=== PATIENT | female | born 1995 | race Hispanic/Latino ===

== ENCOUNTER → 2018-12-24 | Day surgery (SDC) | payer OTHER ==
[~2018-12-24] MED LIST: ATROPINE SULFATE 1 MG/ML VIAL ONE; BUPIVACAINE 0.25% 30ML SDV INJ ONE; CYCLOBENZAPRINE10 MG PO; DEXAMETHASONE SOD PHOS INJ 4 MG/ML VIAL ONE; FENTANYL CITRATE/PF 100MCG/2 ML INJ ONE; KETOROLAC TROMETHAMINE 30 MG/ML VIAL ONE; LIDOCAINE HCL 2% LOCAL INJ 5 ML SDV VIAL INJ ONE; MICROGESTIN FE1 EAC1 PO; MIDAZOLAM HCL 2 MG/2 ML VIAL ONE; NAPROXEN250 MG PO; NEOSTIGMINE 5 MG/5ML SYR ONE; ONDANSETRON HCL INJ 2MG/ML 2ML 2 MG/ML VIAL ONE; PROPOFOL IV EMULSION 10 MG/ML 20 ML VIAL ONE; ROCURONIUM BROMIDE 10 MG/ML 5ML VIAL ONE; SEVOFLURANE INHAL SOLN 250 ML PEN BTL ONE
[2018-12-24 08:45] VITALS: BP 103/83
--- NOTE | 2018-12-24 15:45 | Operative Report ---
DATE OF PROCEDURE: 12/24/2018 SURGEON: Matt Henderson MD PREOPERATIVE DIAGNOSES: Chronic adenotonsillitis, adenotonsillar hypertrophy. POSTOPERATIVE DIAGNOSES: Chronic adenotonsillitis, adenotonsillar hypertrophy. PROCEDURE: Tonsillectomy and adenoidectomy. SIGNIFICANT FINDINGS: Tonsils are 3+ over 3+, scarred bilaterally. Adenoids were moderately enlarged. Tonsilliths present in the right tonsil. TOOL MACHINIST: None. ANESTHESIA: General endotracheal tube anesthesia. ESTIMATED BLOOD LOSS: Less than 1 mL. SPECIMENS REMOVED: Tonsils (adenoids were coblated). INDICATIONS: The patient is a 23-year-old Latin-[place] female with two years history of frequent throat infections, manifesting as severe throat pain, odynophagia, enlarged erythematous exudate of tonsils and tonsillar lymphadenopathy. She has experienced approximately six infections in the past year, treated maximally with multiple course of antibiotics. On examination, the tonsils were 3+ over 3+ scarred bilaterally. She is scheduled for tonsillectomy and adenoidectomy for the treatment of chronic adenotonsillitis and adenotonsillar hypertrophy. Risks and complications of the procedures were thoroughly discussed with the patient. They included infection, bleeding, scarring, failure to improve, need for additional operations, damage to teeth, gums, tongue and lips, persistent throat infections, and throat problems, chronic throat pain, voice changes, numbness of the tongue, inability to taste, leakage of fluid through the nose and drinking liquids, damage to eustachian tube orifices causing middle ear fluid and hearing loss, scarring of the pharynx resulting in permanent worse nasal obstruction, need for blood transfusions, damage to surrounding nerves, blood vessels and muscles. She fully understands and gives consent. DESCRIPTION OF PROCEDURE: The patient was taken to the operating room and placed supine on the operating table where general anesthesia was achieved through orotracheal intubation. Eyes were taped. Shoulder roll was placed. Head and body were draped. Table was turned 90 degrees with the head towards the surgeon. Decadron was administered. Alicia-Ney mouth gag was inserted without difficulty and placed in suspension on the Irby stand. There was no evidence of bifid uvula, diastasis of the muscular uvula or notched hard palate. Red rubber catheters were inserted into the nose and brought out through the mouth to retract the soft palate. Examination of the nasopharynx with the laryngeal mirror revealed the adenoids to be mildly to moderately enlarged. Tonsils were 3+ over 3+ bilaterally. The left tonsil was grasped with a tonsillar Allis clamp was removed with the ArthroCare Coblator on a setting of 6 on cut mode, taking care to stay on the capsule of the tonsil. The right tonsil was removed in the same way. Both tonsillar beds were scarred. There was also tonsilliths present, worse on the right than the left. Hemostasis was obtained with the Coblator on a setting of 3 on coag mode. The adenoids were then removed with the ArthroCare Coblator on a setting of 8 on cut mode, taking care to avoid trauma to the torus tubarius. Hemostasis was obtained with the Coblator on a setting of 3 on coag mode. Following this injection with 3 mL of 0.25% plain Marcaine was injected into the free edges of the anterior and posterior tonsillar pillars. Thorough irrigation was then performed. Stomach contents were suctioned with an NG tube. The red rubber catheters and Alicia-Ney mouth gag were then removed without difficulty revealing no trauma to the teeth, gums, tongue, and lips. The patient was awakened in the operating room, extubated, and taken to the recovery room in good condition. Matt Henderson MD JKY/MODL /[id number]
== END | disposition home or self-care (01) ==
LOC: OR 05:25
PROVIDERS: ATTEND Otolaryngology
DX: J35.03 Chronic tonsillitis and adenoiditis (principal)
CPT/HCPCS: 42821; 81025; 88304; J0461; J1100; J1885; J2001; J2250; J2405; J2704; J3010